=== PATIENT | female | born 1960 | race Caucasian/White ===

== ENCOUNTER → 2023-10-21 08:14 | Outpatient (REF) | payer OTHER, SELFPAY | LOC: WDC 08:14 | PROVIDERS: ATTENDING PHYSICIAN Nurse Practitioner Family | DX: Z12.31 Encounter for screening mammogram for malignant neoplasm of breast (principal) | CPT/HCPCS: 77063; 77067 ==

== ENCOUNTER → 2024-05-25 07:22 | Outpatient (REF) | payer OTHER, SELFPAY | LOC: REG 07:22 | PROVIDERS: ATTENDING PHYSICIAN Student in an Organized Health Care Education/Training Program; FAMILY PHYSICIAN Nurse Practitioner Family | DX: I73.00 Raynaud's syndrome without gangrene (principal); L53.9 Erythematous condition, unspecified; L85.3 Xerosis cutis; M15.1 Heberden's nodes (with arthropathy); M25.40 Effusion, unspecified joint; M25.429 Effusion, unspecified elbow; M79.641 Pain in right hand; M79.642 Pain in left hand | CPT/HCPCS: 73120 ==

== ENCOUNTER → 2024-10-25 08:07 | Outpatient (REF) | payer OTHER, SELFPAY | LOC: WDC 08:07 | PROVIDERS: ATTENDING PHYSICIAN Nurse Practitioner Family | DX: Z12.31 Encounter for screening mammogram for malignant neoplasm of breast (principal) | CPT/HCPCS: 77063; 77067 ==

== ENCOUNTER 2025-01-15 06:07 | Day surgery (SDC) | payer OTHER, SELFPAY ==
[2025-01-05 14:06] VITALS: BMI 27.9
[2025-01-15] VITALS (12 sets, daily range): BP systolic 113–154; BP diastolic 62–69; BMI 27.9
[2025-01-15] MEDS: NORMOSOL-R/PLASMALYTE-A 1000 IV (07:46)
[2025-01-15] MEDS: ZOFRAN 4 MG IV (10:07)
[2025-01-15] MEDS: DILAUDID 0.25 MG IV (10:16)
[2025-01-15] MEDS: TYLENOL 650 MG PO (14:50)
== END 2025-01-15 15:26 | disposition home or self-care (01) ==
LOC: SDS 06:07
PROVIDERS: ATTENDING PHYSICIAN Obstetrics & Gynecology; FAMILY PHYSICIAN Nurse Practitioner Family
DX: N99.3 Prolapse of vaginal vault after hysterectomy (principal); N39.3 Stress incontinence (female) (male); N36.41 Hypermobility of urethra; Y83.8 Other surgical procedures as the cause of abnormal reaction of the patient, or of later complication, without mention of misadventure at the time of the procedure
CPT/HCPCS: 57282; 57260; 57288; 36415; 86850; 86900; 86901; 93005; C1771